=== PATIENT | male | born 1965 | race Two or more races ===

== ENCOUNTER 2017-04-21 04:03 | Emergency (ER) | payer OTHER ==
--- NOTE | ~2017-04-21 | EKG ---
PATIENT: AMRK TITUS UNIT #: [id number] Ventricular Rate: 65 BPM Atrial Rate: 65 BPM P-R Interval: 162 ms QRS Duration: 78 ms Q-T Interval: 376 ms QTC Calculation(Bezet): 391 ms P Stow: 46 degrees Calculated R Stow: 29 degrees Calculated T Stow: 40 degrees Diagnosis Line: Normal sinus rhythm Diagnosis Line: Normal ECG Diagnosis Line: No previous ECGs available Diagnosis Line: Confirmed by LUKE GOLDSMITH MD ([id number]) on Diagnosis Line: 04/21/2017 10:47:22 PM INTERPRETING MD: GHAZAL
--- NOTE | ~2017-04-21 | CR72 ---
[facility] A Service of [facility] & [facility] RADIOLOGY TEXT RESULTS PATIENT: MARK TITUS LOCATION: [facility] : 65 UNIT #: [id number] AGE: [address]: Delphine Xiao APRN SEX: M ORDER DR: [id number] [facility] [address] [place], [place] [address] [id number] MR#: [id number] Acc #: [id number] NAME: MARK TITUS : 1965 SEX: M STUDY DATE/TIME: 04/21/2017 5:09 UNIT: [facility] ROOM: STUDY DESCRIPTION: CR Chest Single View Portable Attending Physician: Delphine Xiao A.P.R.N. Ordering Physician: Delphine Xiao A.P.R.N. Primary Care Physician: No Primary Care Physician MEDICAL IMAGING REPORT This report is preliminary unless electronic signature is present EXAM Portable chest INDICATION Shortness of air today. PROCEDURE Frontal view chest. COMPARISON 12/06/2016 FINDINGS Heart size within normal limits. No dense consolidation, pleural fluid, or pneumothorax. IMPRESSION No active process. Dictated by... Cristóbal Doe M.D. THIS IS AN ELECTRONICALLY VERIFIED REPORT Cristóbal Doe M.D. at 04/21/2017 10:24 PM DAVID/evon TD: 04/21/2017 09:04 JOB #: [id number] MEDICAL IMAGING REPORT Page 1 of 1 COPY
[2017-04-21 04:54] LABS: BASOPHIL# 0.1 X10e3 (0-0.3); EOSINOPHIL# 0.2 X10e3 (0-0.7); EOSINOPHIL% 2.5 % (0.0-7.0); HEMATOCRIT 42.1 % (38.0-50.0); LYMPHOCYTE# 3.4 X10e3 (1.0-3.5); LYMPHOCYTE% 46.9 % (17.0-45.0); MEAN CELL VOLUME 84.7 FL (83-96); MEAN CORPUSCULAR HEMOGLOBIN 28.2 PG (28-34); MEAN CORPUSCULAR HGB CONC 33.3 g/dL (30-36); MEAN PLATELET VOLUME 9.7 FL (6.5-11.5); MONOCYTE# 0.4 X10e3 (0-1.0); NEUTROPHIL# 3.2 X10e3 (1.5-7.1); NEUTROPHIL% 44.6 % (40-75); PLATELET COUNT 242 X10e3 (140-420); RED BLOOD COUNT 4.98 X10e (3.90-5.60); RED CELL DISTRIBUTION WIDTH 13.6 % (11.0-15.5); WHITE BLOOD COUNT 7.2 X10e3 (4.0-10.5)
[2017-04-21 04:56] LABS: DIFF IND NO
[2017-04-21 04:59] LABS: INFLUENZA A NEG (NEG); INFLUENZA B NEG (NEG)
[2017-04-21 05:15] LABS: PARTIAL THROMBOPLASTIN TIME 21.9 SECONDS (23.5-31.3); PROTHROMBIN TIME (PATIENT) 10.7 SECONDS (10.0-11.7)
[2017-04-21 05:24] LABS: ALBUMIN SERUM 3.9 g/dL (3.5-5.0); BILIRUBIN, DIRECT 0.1 mg/dL (0.0-0.2); BILIRUBIN,INDIRECT 0.3 mg/dL (0.0-0.9); BILIRUBIN,TOTAL 0.4 mg/dL (0.2-2.0); CALCIUM SERUM 9.1 mg/dL (8.4-10.2); GLOM FILT RATE Estimated 86.8 mL/min (>60); POTASSIUM 4.1 mmol/L (3.5-5.1)
== END 2017-04-21 06:10 | disposition home or self-care (01) ==
LOC: CED 04:03
PROVIDERS: Nurse Practitioner
DX: R10.13 Epigastric pain (principal); F17.210 Nicotine dependence, cigarettes, uncomplicated; Z90.49 Acquired absence of other specified parts of digestive tract
CPT/HCPCS: 36415; 71010; 80048; 80076; 82150; 83690; 85025; 85379; 85610; 85730; 87804; 93005; 99284; J2405